=== PATIENT | female | born 1950 | race African-American/Black ===

== ENCOUNTER 2017-12-09 10:37 | Inpatient (IN) ==
[2017-12-09] MEDS ORDERED: LEVOFLOXACIN INJ 750 MG in PREMIX 1 EACH IV STA (11:07)
[2017-12-09] MEDS ORDERED: SODIUM CHLORIDE 0.9% 500 ML IV STA (11:07)
[2017-12-09 12:05] LABS: Alanine Aminotransferase 19 U/L (13-56); Albumin 2.6 G/DL (3.4-5.0); Alkaline Phosphatase 70 U/L (45-117); Aspartate Amino Transferase 52 U/L (0-37); Bilirubin,Total < 0.39 MG/DL (0.2-1.0); Blood Urea Nitrogen 13 MG/DL (7-18); Calcium 8.8 MG/DL (8.5-10.1); Glucose 78 MG/DL (74-106); Lactic Acid 1.2 MMOL/L (0.4-2.0); Osmolality,Calculated 286.7 MOS/KG (273-304); Potassium 3.9 MMOL/L (3.5-5.1); Sodium 145 MMOL/L (136-145); Total Protein 6.6 G/DL (6.4-8.3)
[2017-12-09 12:11] LABS: Apearance,Urine CLOUDY (Clear); Bacteria,Urine Many /HPF (Few); Bilirubin,Urine Negative (Negative); Blood, Urine Small mg/dL (Negative); Glucose,Urine (UA) Negative (Negative); Ketones,Urine Negative (Negative); Mucus,Urine Many /LPF (Occasional); Nitrite,Urine Negative (Negative); Protein,Urine 30 MG/DL; RBC,Urine 16 /HPF (0-4); Urine Color Amber (Yellow); Urine Specific Gravity 1.015 (1.001-1.035); WBC,Urine 295 /HPF (0-6)
[2017-12-09 12:11] LABS: Basophils % 0.3 % (0.0-0.8); Hematocrit 34.7 VOL% (35.7-47.0); Immature Granulocytes % 0.7 %; Immature Granulocytes Absolute 0.11 #; Lymphocytes # 1.6 10*3/uL (1.4-4.0); Lymphocytes % 10.1 % (21.3-54.2); Mean Corpuscular HGB Conc 31.7 GM/DL (32-36); Mean Corpuscular Hemoglobin 29 PG (27-34); Mean Corpuscular Volume 89.9 FL (87-102); Mean Platelet Volume 9.7 FL (9.6-12.0); Monocytes # 1.4 10*3/uL (0.11-0.8); Monocytes % 8.9 % (1.7-12.7); Neutrophils # 12.4 10*3/uL (1.4-7.4); Platelet Count 195 T/CUMM (130-400); Red Blood Count 3.86 MC/CUMM (3.8-5.5); Red Cell Distribution Width 14.6 % (9.3-17.3); White Blood Count 15.5 T/CUMM (4-12)
[2017-12-09 12:39] LABS: Band Neutrophils 24 % (0-10); Lymphocytes 12 % (20-55); Segmented Neutrophils 58 % (50-85); Total Cells Counted 100
[2017-12-09 12:40] LABS: Anisocytosis 1+; Macrocytosis Slight; Platelet Estimate Adequate
[2017-12-09] MEDS ORDERED: DOCUSATE SODIUM 100 MG CAPSULE PO PRN (13:06)
[2017-12-09] MEDS ORDERED: ONDANSETRON 4 MG/2 ML VIAL IV PRN (13:06)
[2017-12-09] MEDS ORDERED: ACETAMINOPHEN 325 MG TABLET PO PRN (13:24)
[2017-12-09] MEDS ORDERED: ONDANSETRON 4 MG TABLET PO PRN (13:24)
[2017-12-09] MEDS ORDERED: SODIUM CHLORIDE 0.9% 1,000 ML IV SCH (13:30)
[2017-12-09] MEDS ORDERED: ZIPRASIDONE 20 MG/1 ML VIAL IM ONE (16:58)
[2017-12-09] MEDS: SODIUM CHLORIDE 0.9% 1,000 ML IV SCH (17:18)
[2017-12-09] MEDS: ALBUTEROL 2.5 MG/3 ML NEB RESP TX SCH (19:29)
[2017-12-09] MEDS: MELATONIN 3 MG TABLET PO SCH (20:08)
[2017-12-09] MEDS: HALOPERIDOL 1 MG TABLET PO SCH (22:04)
[2017-12-09] MEDS: MEMANTINE 5 MG TABLET PO SCH (22:04)
[2017-12-09] MEDS: BENZTROPINE 2 MG TABLET PO SCH (22:05)
[2017-12-09] MEDS: HydrOXYzine PAMOATE 25 MG CAPSULE PO SCH (22:05)
[2017-12-09] MEDS: traZODone 50 MG TABLET PO SCH (22:05)
[2017-12-10] MEDS: ALBUTEROL 2.5 MG/3 ML NEB RESP TX SCH ×4 (00:13→20:10)
[2017-12-10] MEDS: ZIPRASIDONE 20 MG/1 ML VIAL IM PRN ×4 (01:41→22:48)
[2017-12-10] MEDS: LEVOTHYROXINE 50 MCG TABLET PO SCH (06:03)
[2017-12-10 08:12] LABS: Basophils % 0.1 % (0.0-0.8); Hematocrit 32.9 VOL% (35.7-47.0); Hemoglobin 10.7 GM/DL (12.0-16.0); Immature Granulocytes % 0.3 %; Immature Granulocytes Absolute 0.02 #; Lymphocytes # 0.9 10*3/uL (1.4-4.0); Mean Corpuscular HGB Conc 32.5 GM/DL (32-36); Mean Corpuscular Hemoglobin 29 PG (27-34); Mean Corpuscular Volume 88.9 FL (87-102); Mean Platelet Volume 10.1 FL (9.6-12.0); Monocytes # 0.6 10*3/uL (0.11-0.8); Monocytes % 8.4 % (1.7-12.7); Neutrophils # 6.1 10*3/uL (1.4-7.4); Neutrophils % 79.2 % (38.7-73.9); Platelet Count 229 T/CUMM (130-400); Red Cell Distribution Width 14.8 % (9.3-17.3); White Blood Count 7.7 T/CUMM (4-12)
[2017-12-10 08:38] LABS: Calcium 8.7 MG/DL (8.5-10.1); Osmolality,Calculated 282.8 MOS/KG (273-304)
[2017-12-10] MEDS: BENZTROPINE 2 MG TABLET PO SCH ×3 (08:56→20:48)
[2017-12-10] MEDS: HALOPERIDOL 1 MG TABLET PO SCH ×3 (08:56→20:48)
[2017-12-10] MEDS: HydrOXYzine PAMOATE 25 MG CAPSULE PO SCH ×3 (08:57→20:49)
[2017-12-10] MEDS: MEMANTINE 5 MG TABLET PO SCH ×3 (08:57→20:49)
[2017-12-10] MEDS: PANTOPRAZOLE 40 MG TABLET PO SCH (08:57)
[2017-12-10] MEDS: POTASSIUM CHLORIDE 20 MEQ/15 ML UDCUP PO SCH (08:57)
[2017-12-10] MEDS ORDERED: FUROSEMIDE 20 MG TABLET PO SCH (09:00)
[2017-12-10] MEDS ORDERED: LEVOFLOXACIN INJ 500 MG in PREMIX 1 EACH IV SCH (11:00)
[2017-12-10] MEDS: LEVOFLOXACIN INJ 500 MG in PREMIX 1 EACH IV SCH (11:54)
[2017-12-10] MEDS: SODIUM CHLORIDE 0.9% 1,000 ML IV SCH ×2 (15:26→22:51)
[2017-12-10] MEDS: MELATONIN 3 MG TABLET PO SCH (17:23)
[2017-12-10] MEDS: traZODone 50 MG TABLET PO SCH (20:47)
[2017-12-11] MEDS: ALBUTEROL 2.5 MG/3 ML NEB RESP TX SCH ×4 (01:02→19:20)
[2017-12-11] MEDS: ZIPRASIDONE 20 MG/1 ML VIAL IM PRN ×2 (05:01→16:25)
[2017-12-11 05:37] LABS: Basophils % 0.1 % (0.0-0.8); Hematocrit 31.3 VOL% (35.7-47.0); Immature Granulocytes % 0.4 %; Immature Granulocytes Absolute 0.03 #; Lymphocytes # 0.8 10*3/uL (1.4-4.0); Lymphocytes % 10.4 % (21.3-54.2); Mean Corpuscular HGB Conc 31.9 GM/DL (32-36); Mean Corpuscular Hemoglobin 29 PG (27-34); Mean Corpuscular Volume 89.4 FL (87-102); Mean Platelet Volume 10.2 FL (9.6-12.0); Monocytes % 13.6 % (1.7-12.7); Neutrophils # 5.6 10*3/uL (1.4-7.4); Neutrophils % 75.5 % (38.7-73.9); Platelet Count 215 T/CUMM (130-400); Red Cell Distribution Width 14.6 % (9.3-17.3); White Blood Count 7.4 T/CUMM (4-12)
[2017-12-11 06:07] LABS: Calcium 8.4 MG/DL (8.5-10.1); Osmolality,Calculated 283.7 MOS/KG (273-304); Potassium 3.6 MMOL/L (3.5-5.1)
[2017-12-11] MEDS: LEVOTHYROXINE 50 MCG TABLET PO SCH (07:42)
[2017-12-11] MEDS: HydrOXYzine PAMOATE 25 MG CAPSULE PO SCH ×2 (10:31→22:46)
[2017-12-11] MEDS: MEMANTINE 5 MG TABLET PO SCH ×2 (10:32→22:46)
[2017-12-11] MEDS: HALOPERIDOL 1 MG TABLET PO SCH ×2 (10:32→22:46)
[2017-12-11] MEDS: PANTOPRAZOLE 40 MG TABLET PO SCH (10:32)
[2017-12-11] MEDS: BENZTROPINE 2 MG TABLET PO SCH ×2 (10:32→22:46)
[2017-12-11] MEDS: POTASSIUM CHLORIDE 20 MEQ/15 ML UDCUP PO SCH (10:33)
[2017-12-11] MEDS: LEVOFLOXACIN INJ 500 MG in PREMIX 1 EACH IV SCH (11:34)
[2017-12-11] MEDS: cefTAZidime 500 MG in SYRINGE 1 EACH IV SCH ×2 (16:11→22:55)
[2017-12-11] MEDS: SODIUM CHLORIDE 0.9% 1,000 ML IV SCH (16:37)
[2017-12-11] MEDS: MELATONIN 3 MG TABLET PO SCH (17:54)
[2017-12-11] MEDS: traZODone 50 MG TABLET PO SCH (22:46)
[2017-12-12] MEDS: ALBUTEROL 2.5 MG/3 ML NEB RESP TX SCH ×4 (00:10→19:31)
[2017-12-12] MEDS: ZIPRASIDONE 20 MG/1 ML VIAL IM PRN (02:47)
[2017-12-12] MEDS: cefTAZidime 500 MG in SYRINGE 1 EACH IV SCH ×3 (06:17→22:31)
[2017-12-12] MEDS: LEVOTHYROXINE 50 MCG TABLET PO SCH (06:18)
[2017-12-12] MEDS: SODIUM CHLORIDE 0.9% 1,000 ML IV SCH ×2 (10:10→15:35)
[2017-12-12] MEDS: BENZTROPINE 2 MG TABLET PO SCH ×3 (10:11→21:01)
[2017-12-12] MEDS: PANTOPRAZOLE 40 MG TABLET PO SCH ×2 (10:11→17:08)
[2017-12-12] MEDS: POTASSIUM CHLORIDE 20 MEQ/15 ML UDCUP PO SCH ×2 (10:11→17:07)
[2017-12-12] MEDS: HydrOXYzine PAMOATE 25 MG CAPSULE PO SCH ×3 (10:11→21:01)
[2017-12-12] MEDS: MEMANTINE 5 MG TABLET PO SCH ×3 (10:11→21:01)
[2017-12-12] MEDS: HALOPERIDOL 1 MG TABLET PO SCH ×3 (10:11→21:01)
[2017-12-12 12:14] LABS: Apearance,Urine CLEAR (Clear); Blood, Urine Negative (Negative); Glucose,Urine (UA) Negative (Negative); Ketones,Urine 20 mg/dL (Negative); Mucus,Urine Many /LPF (Occasional); Nitrite,Urine Negative (Negative); Protein,Urine 30 MG/DL; RBC,Urine 2 /HPF (0-4); Urine Color Amber (Yellow); Urine Specific Gravity 1.028 (1.001-1.035); WBC,Urine 2 /HPF (0-6)
[2017-12-12 12:15] LABS: Bilirubin,Urine Small mg/dL (Negative)
[2017-12-12] MEDS: MELATONIN 3 MG TABLET PO SCH (17:08)
[2017-12-12] MEDS: traZODone 50 MG TABLET PO SCH (21:01)
[2017-12-13] MEDS: ALBUTEROL 2.5 MG/3 ML NEB RESP TX SCH ×4 (00:39→19:27)
[2017-12-13 06:10] LABS: Basophils % 0.4 % (0.0-0.8); Eosinophils % 0.2 % (0.00-10.9); Hematocrit 31.4 VOL% (35.7-47.0); Hemoglobin 10.1 GM/DL (12.0-16.0); Immature Granulocytes % 0.7 %; Immature Granulocytes Absolute 0.04 #; Lymphocytes # 1.6 10*3/uL (1.4-4.0); Lymphocytes % 30.5 % (21.3-54.2); Mean Corpuscular HGB Conc 32.2 GM/DL (32-36); Mean Corpuscular Hemoglobin 28 PG (27-34); Mean Corpuscular Volume 87.5 FL (87-102); Mean Platelet Volume 9.5 FL (9.6-12.0); Monocytes # 0.6 10*3/uL (0.11-0.8); Neutrophils % 56.2 % (38.7-73.9); Platelet Count 242 T/CUMM (130-400); Red Blood Count 3.59 MC/CUMM (3.8-5.5); Red Cell Distribution Width 14.6 % (9.3-17.3); White Blood Count 5.4 T/CUMM (4-12)
[2017-12-13 06:24] LABS: Calcium 8.3 MG/DL (8.5-10.1); Osmolality,Calculated 282.8 MOS/KG (273-304); Potassium 3.3 MMOL/L (3.5-5.1)
[2017-12-13] MEDS: SODIUM CHLORIDE 0.9% 1,000 ML IV SCH (06:35)
[2017-12-13] MEDS: cefTAZidime 500 MG in SYRINGE 1 EACH IV SCH ×3 (06:37→23:54)
[2017-12-13] MEDS: LEVOTHYROXINE 50 MCG TABLET PO SCH (06:37)
[2017-12-13] MEDS: BENZTROPINE 2 MG TABLET PO SCH ×2 (08:47→21:44)
[2017-12-13] MEDS: HALOPERIDOL 1 MG TABLET PO SCH ×2 (08:47→21:44)
[2017-12-13] MEDS: PANTOPRAZOLE 40 MG TABLET PO SCH (08:47)
[2017-12-13] MEDS: MEMANTINE 5 MG TABLET PO SCH ×2 (08:47→21:43)
[2017-12-13] MEDS: POTASSIUM CHLORIDE 20 MEQ/15 ML UDCUP PO SCH (08:47)
[2017-12-13] MEDS: HydrOXYzine PAMOATE 25 MG CAPSULE PO SCH ×2 (08:47→21:43)
[2017-12-13] MEDS: MELATONIN 3 MG TABLET PO SCH (21:44)
[2017-12-13] MEDS: traZODone 50 MG TABLET PO SCH (21:45)
[2017-12-14] MEDS: ALBUTEROL 2.5 MG/3 ML NEB RESP TX SCH ×4 (00:13→19:06)
[2017-12-14] MEDS: LEVOTHYROXINE 50 MCG TABLET PO SCH (06:27)
[2017-12-14] MEDS: cefTAZidime 500 MG in SYRINGE 1 EACH IV SCH ×3 (06:28→23:57)
[2017-12-14] MEDS: BENZTROPINE 2 MG TABLET PO SCH ×2 (08:02→21:36)
[2017-12-14] MEDS: POTASSIUM CHLORIDE 20 MEQ/15 ML UDCUP PO SCH (08:02)
[2017-12-14] MEDS: HALOPERIDOL 1 MG TABLET PO SCH ×2 (08:02→21:35)
[2017-12-14] MEDS: MEMANTINE 5 MG TABLET PO SCH ×2 (08:02→21:35)
[2017-12-14] MEDS: PANTOPRAZOLE 40 MG TABLET PO SCH (08:02)
[2017-12-14] MEDS: HydrOXYzine PAMOATE 25 MG CAPSULE PO SCH ×2 (08:02→21:35)
[2017-12-14 11:43] LABS: Apearance,Urine CLEAR (Clear); Bilirubin,Urine Negative (Negative); Blood, Urine Negative (Negative); Glucose,Urine (UA) Negative (Negative); Ketones,Urine Negative (Negative); Mucus,Urine Occasional /LPF (Occasional); Nitrite,Urine Negative (Negative); Protein,Urine Negative; Urine Color Straw (Yellow); Urine Specific Gravity 1.002 (1.001-1.035); Urine Urobilinogen < 2.0 EU/DL (0.2-1.0); WBC,Urine 1 /HPF (0-6)
[2017-12-14] MEDS: SODIUM CHLORIDE 0.9% 1,000 ML IV SCH ×2 (15:23→15:26)
[2017-12-14] MEDS: MELATONIN 3 MG TABLET PO SCH (17:10)
[2017-12-14] MEDS: traZODone 50 MG TABLET PO SCH (21:35)
[2017-12-15] MEDS: ALBUTEROL 2.5 MG/3 ML NEB RESP TX SCH ×2 (00:33→07:21)
[2017-12-15] MEDS: SODIUM CHLORIDE 0.9% 1,000 ML IV SCH (04:18)
[2017-12-15] MEDS: LEVOTHYROXINE 50 MCG TABLET PO SCH (06:10)
[2017-12-15] MEDS: cefTAZidime 500 MG in SYRINGE 1 EACH IV SCH (06:10)
[2017-12-15] MEDS: MEMANTINE 5 MG TABLET PO SCH (09:21)
[2017-12-15] MEDS: POTASSIUM CHLORIDE 20 MEQ/15 ML UDCUP PO SCH (09:21)
[2017-12-15] MEDS: PANTOPRAZOLE 40 MG TABLET PO SCH (09:21)
[2017-12-15] MEDS: HALOPERIDOL 1 MG TABLET PO SCH (09:21)
[2017-12-15] MEDS: POTASSIUM CHLORIDE RIDER 10 MEQ in PREMIX 1 EACH IV SCH ×3 (09:21→13:20)
[2017-12-15] MEDS: BENZTROPINE 2 MG TABLET PO SCH (09:22)
[2017-12-15] MEDS: HydrOXYzine PAMOATE 25 MG CAPSULE PO SCH (09:22)
[2017-12-15 13:23] VITALS: BP 123/75
== END 2017-12-15 13:40 | DRG 139 ==
LOC: EDUNIT# → EDBD → N.ED 10:37 → N.EDINP 13:06 → SUATTDRO 13:06 → N.5E 16:08
PROVIDERS: ADMIT Family Medicine

== ENCOUNTER 2018-02-26 15:24 | Observation (INO) ==
[2018-02-26 16:54] LABS: Basophils % 0.3 % (0.0-0.8); Eosinophils % 0.3 % (0.00-10.9); Hematocrit 35.6 VOL% (35.7-47.0); Hemoglobin 10.9 GM/DL (12.0-16.0); Immature Granulocytes % 0.3 %; Immature Granulocytes Absolute 0.02 #; Lymphocytes # 1.6 10*3/uL (1.4-4.0); Lymphocytes % 21.6 % (21.3-54.2); Mean Corpuscular HGB Conc 30.6 GM/DL (32-36); Mean Corpuscular Hemoglobin 25 PG (27-34); Mean Corpuscular Volume 80.2 FL (87-102); Mean Platelet Volume 8.8 FL (9.6-12.0); Monocytes # 0.5 10*3/uL (0.11-0.8); Monocytes % 6.1 % (1.7-12.7); Neutrophils # 5.4 10*3/uL (1.4-7.4); Neutrophils % 71.4 % (38.7-73.9); Platelet Count 389 T/CUMM (130-400); Red Blood Count 4.44 MC/CUMM (3.8-5.5); Red Cell Distribution Width 14.7 % (9.3-17.3); White Blood Count 7.5 T/CUMM (4-12)
[2018-02-26] MEDS ORDERED: SODIUM CHLORIDE 0.9% 500 ML IV STA (16:54)
[2018-02-26] MEDS ORDERED: ONDANSETRON 4 MG/2 ML VIAL IV STA (16:54)
[2018-02-26] MEDS ORDERED: methylPREDNISolone SOD SUC 125 MG/2 ML VIAL IV STA (16:54)
[2018-02-26] MEDS ORDERED: CLINDAMYCIN INJ 600 MG in PREMIX 1 EACH IV STA (16:54)
[2018-02-26] MEDS ORDERED: ALBUTEROL NEB SOLN 5 MG/ML 20 ML/BOTTLE RESP TX SCH (17:00)
[2018-02-26 17:19] LABS: Alanine Aminotransferase 32 U/L (13-56); Alkaline Phosphatase 96 U/L (45-117); Aspartate Amino Transferase 23 U/L (0-37); Bilirubin,Total < 0.39 MG/DL (0.2-1.0); Blood Urea Nitrogen 14 MG/DL (7-18); Glucose 86 MG/DL (74-106); Osmolality,Calculated 272.8 MOS/KG (273-304); Sodium 137 MMOL/L (136-145); Total Protein 7.4 G/DL (6.4-8.3)
[2018-02-26 17:33] LABS: PT Patient Result 10.8 SECS
[2018-02-26 18:01] LABS: Apearance,Urine CLEAR (Clear); Bacteria,Urine Occasional /HPF (Few); Bilirubin,Urine Negative (Negative); Blood, Urine Small mg/dL (Negative); Glucose,Urine (UA) Negative (Negative); Hyaline Casts,Urine 1 /LPF (0-3); Ketones,Urine Negative (Negative); Mucus,Urine Occasional /LPF (Occasional); Nitrite,Urine Negative (Negative); Protein,Urine Negative; RBC,Urine 5 /HPF (0-4); Urine Color Yellow (Yellow); Urine Specific Gravity 1.015 (1.001-1.035); Urine Urobilinogen < 2.0 EU/DL (0.2-1.0); WBC,Urine 13 /HPF (0-6)
[2018-02-26] MEDS ORDERED: cefTRIAXone 1,000 MG in SODIUM CHLORIDE 0.9% 100 ML IV STA (18:05)
[2018-02-26] MEDS ORDERED: cefTRIAXone 1,000 MG in SYRINGE 1 EACH IV STA (18:08)
[2018-02-26] MEDS ORDERED: ACETAMINOPHEN 325 MG TABLET PO PRN (19:00)
[2018-02-26] MEDS ORDERED: ONDANSETRON 4 MG/2 ML VIAL IV PRN (19:00)
[2018-02-26] MEDS ORDERED: SODIUM CHLORIDE 0.9% 1,000 ML IV SCH (19:00)
[2018-02-26] MEDS ORDERED: traZODone 50 MG TABLET PO SCH (21:01)
[2018-02-26] MEDS ORDERED: MELATONIN 3 MG TABLET PO SCH (21:01)
[2018-02-26] MEDS ORDERED: VALPROIC ACID 250 MG/5 ML UDCUP PO SCH (21:01)
[2018-02-26] MEDS: PIPERACILLIN/TAZOBACTAM 3,375 MG in SODIUM CHLORIDE 0.9% 100 ML IV SCH (22:00)
[2018-02-26] MEDS: HydrOXYzine PAMOATE 25 MG CAPSULE PO SCH (22:31)
[2018-02-26] MEDS: BENZTROPINE 1 MG TABLET PO SCH (22:31)
[2018-02-26] MEDS: MEMANTINE 5 MG TABLET PO SCH (22:31)
[2018-02-26] MEDS: HALOPERIDOL 1 MG TABLET PO SCH (22:32)
[2018-02-27] MEDS ORDERED: LEVOTHYROXINE 50 MCG TABLET PO SCH (06:00)
[2018-02-27 06:43] LABS: Hematocrit 32.7 VOL% (35.7-47.0); Immature Granulocytes % 0.5 %; Immature Granulocytes Absolute 0.03 #; Lymphocytes % 16.1 % (21.3-54.2); Mean Corpuscular HGB Conc 30.6 GM/DL (32-36); Mean Corpuscular Hemoglobin 24 PG (27-34); Mean Corpuscular Volume 79.8 FL (87-102); Monocytes # 0.1 10*3/uL (0.11-0.8); Monocytes % 2.1 % (1.7-12.7); Neutrophils # 5.2 10*3/uL (1.4-7.4); Neutrophils % 81.3 % (38.7-73.9); Platelet Count 365 T/CUMM (130-400); Red Cell Distribution Width 14.7 % (9.3-17.3); White Blood Count 6.3 T/CUMM (4-12)
[2018-02-27 07:21] LABS: Calcium 8.8 MG/DL (8.5-10.1); Osmolality,Calculated 277.4 MOS/KG (273-304); Potassium 4.8 MMOL/L (3.5-5.1); Thyroid Stimulating Hormone 0.668 uIU/ml (0.358-3.74)
[2018-02-27 07:37] VITALS: BP 96/70
[2018-02-27] MEDS ORDERED: FUROSEMIDE 20 MG TABLET PO SCH (08:00)
[2018-02-27] MEDS ORDERED: VALPROIC ACID 250 MG/5 ML UDCUP PO SCH (08:00)
[2018-02-27] MEDS ORDERED: POTASSIUM CHLORIDE 20 MEQ/15 ML UDCUP PO SCH (08:00)
[2018-02-27] MEDS: PIPERACILLIN/TAZOBACTAM 3,375 MG in SODIUM CHLORIDE 0.9% 100 ML IV SCH (08:30)
[2018-02-27] MEDS ORDERED: PANTOPRAZOLE 40 MG TABLET PO SCH (09:00)
[2018-02-27] MEDS: BENZTROPINE 1 MG TABLET PO SCH (09:12)
[2018-02-27] MEDS: MEMANTINE 5 MG TABLET PO SCH (09:12)
[2018-02-27] MEDS: HydrOXYzine PAMOATE 25 MG CAPSULE PO SCH (09:13)
[2018-02-27] MEDS: HALOPERIDOL 1 MG TABLET PO SCH (09:13)
== END 2018-02-27 11:00 ==
LOC: EDBD → EDUNIT# → N.ED 15:24 → N.EDINP 15:24 → N.2E 18:56
PROVIDERS: ADMIT Internal Medicine; ATTEND Internal Medicine

== ENCOUNTER 2018-03-12 20:41 | Inpatient (IN) ==
[2018-03-12] MEDS ORDERED: SODIUM CHLORIDE 0.9% 1,000 ML IV STA (21:47)
[2018-03-12] MEDS ORDERED: CEFEPIME 1,000 MG in SODIUM CHLORIDE 0.9% 100 ML IV STA (21:47)
[2018-03-12] MEDS ORDERED: ROCURONIUM 100 MG/10 ML VIAL IV STA (23:01)
[2018-03-12] MEDS ORDERED: ETOMIDATE 20 MG/10 ML VIAL IV STA (23:02)
[2018-03-12 23:03] LABS: Basophils % 0.2 % (0.0-0.8); Hematocrit 35.3 VOL% (35.7-47.0); Hemoglobin 10.6 GM/DL (12.0-16.0); Immature Granulocytes % 0.2 %; Immature Granulocytes Absolute 0.02 #; Lymphocytes # 0.3 10*3/uL (1.4-4.0); Lymphocytes % 2.2 % (21.3-54.2); Mean Corpuscular Hemoglobin 24 PG (27-34); Mean Platelet Volume 8.6 FL (9.6-12.0); Monocytes # 0.4 10*3/uL (0.11-0.8); Neutrophils # 11.3 10*3/uL (1.4-7.4); Neutrophils % 94.4 % (38.7-73.9); Platelet Count 338 T/CUMM (130-400); Red Blood Count 4.41 MC/CUMM (3.8-5.5); Red Cell Distribution Width 16.1 % (9.3-17.3); White Blood Count 11.9 T/CUMM (4-12)
[2018-03-12 23:23] LABS: Band Neutrophils 14 % (0-10); Lymphocytes 2 % (20-55); Segmented Neutrophils 82 % (50-85); Total Cells Counted 100
[2018-03-12 23:24] LABS: Anisocytosis 1+; Ovalocytes Few; Platelet Estimate Adequate
[2018-03-12 23:28] LABS: Lactic Acid 1.6 MMOL/L (0.4-2.0)
[2018-03-12 23:30] LABS: VBG Base Excess 6.1 MEQ/L (0-4); VBG HCO3 29.6 MEQ/L (24-28); VBG Oxygen Saturation 79.6 %; VBG PCO2 62.1 MMHG (41-51); VBG PH 7.343; VBG PO2 50.3 MMHG (17-40)
[2018-03-12 23:30] LABS: Albumin 3.2 G/DL (3.4-5.0); Bilirubin,Total 0.4 MG/DL (0.2-1.0); Calcium 8.8 MG/DL (8.5-10.1); Osmolality,Calculated 288.7 MOS/KG (273-304); Potassium 3.9 MMOL/L (3.5-5.1); Total Protein 7.6 G/DL (6.4-8.3)
[2018-03-12] MEDS: PROPOFOL 1,000 MG/100 ML BOTTLE IV SCH (23:30)
[2018-03-13] MEDS ORDERED: VECURONIUM 10 MG VIAL IV ONE ×3 (00:51→06:27)
[2018-03-13] MEDS ORDERED: VECURONIUM 10 MG VIAL IV STA ×3 (00:55→06:35)
[2018-03-13 02:03] LABS: Apearance,Urine CLEAR (Clear); Bacteria,Urine Occasional /HPF (Few); Bilirubin,Urine Negative (Negative); Blood, Urine Negative (Negative); Glucose,Urine (UA) Negative (Negative); Ketones,Urine 20 mg/dL (Negative); Mucus,Urine Occasional /LPF (Occasional); Nitrite,Urine Negative (Negative); Protein,Urine Negative; RBC,Urine 1 /HPF (0-4); Urine Color Yellow (Yellow); Urine Specific Gravity 1.018 (1.001-1.035); WBC,Urine 1 /HPF (0-6)
[2018-03-13] MEDS ORDERED: ALBUTEROL 2.5 MG/3 ML NEB RESP TX PRN (02:26)
[2018-03-13] MEDS ORDERED: ONDANSETRON 4 MG/2 ML VIAL IV PRN (02:26)
[2018-03-13] MEDS ORDERED: ACETAMINOPHEN 325 MG TABLET PO PRN (02:26)
[2018-03-13] MEDS: SODIUM CHLORIDE 0.9% 1,000 ML IV SCH ×3 (03:05→18:52)
[2018-03-13 04:40] LABS: Basophils % 0.2 % (0.0-0.8); Hematocrit 31.2 VOL% (35.7-47.0); Hemoglobin 9.3 GM/DL (12.0-16.0); Immature Granulocytes % 0.3 %; Immature Granulocytes Absolute 0.03 #; Lymphocytes # 0.6 10*3/uL (1.4-4.0); Lymphocytes % 5.6 % (21.3-54.2); Mean Corpuscular HGB Conc 29.8 GM/DL (32-36); Mean Corpuscular Hemoglobin 24 PG (27-34); Mean Corpuscular Volume 80.6 FL (87-102); Mean Platelet Volume 8.7 FL (9.6-12.0); Monocytes # 0.3 10*3/uL (0.11-0.8); Monocytes % 3.2 % (1.7-12.7); Neutrophils # 9.1 10*3/uL (1.4-7.4); Neutrophils % 90.7 % (38.7-73.9); Platelet Count 272 T/CUMM (130-400); Red Blood Count 3.87 MC/CUMM (3.8-5.5); Red Cell Distribution Width 15.9 % (9.3-17.3); White Blood Count 10.1 T/CUMM (4-12)
[2018-03-13 05:00] LABS: Band Neutrophils 19 % (0-10); Hypochromasia 1+; Lymphocytes 10 % (20-55); Ovalocytes Slight; Platelet Estimate Adequate; Segmented Neutrophils 67 % (50-85); Total Cells Counted 100
[2018-03-13] MEDS: AMPICILLIN/SULBACTAM 1,500 MG in SODIUM CHLORIDE 0.9% 100 ML IV SCH ×4 (05:00→22:02)
[2018-03-13 05:11] LABS: % Iron Saturation 3.3 % (18-50); Calcium 8.2 MG/DL (8.5-10.1); Ferritin 19.3 ng/ml (8-252); Osmolality,Calculated 292.4 MOS/KG (273-304); Potassium 3.8 MMOL/L (3.5-5.1); Thyroid Stimulating Hormone 1.53 uIU/ml (0.358-3.74)
[2018-03-13 05:35] LABS: Vitamin B12 721 PG/ML (211-911)
[2018-03-13 05:52] LABS: Sedimentation Rate-Westergren 30 MM/HR (0-30)
[2018-03-13] MEDS ORDERED: ETOMIDATE 20 MG/10 ML VIAL IV ONE (06:38)
[2018-03-13] MEDS ORDERED: ROCURONIUM 100 MG/10 ML VIAL IV ONE (06:39)
[2018-03-13] MEDS: ALBUTEROL/IPRATROPIUM 3 ML NEB RESP TX SCH ×3 (06:55→19:05)
[2018-03-13 07:17] LABS: ABG Base Excess 4.1 MMOL/L (-2.5-2.5); ABG HCO3 28.2 MMOL/L (20-26); ABG Oxygen Saturation 99.7 % (95-100); ABG PCO2 61.1 MM HG (35-48); ABG PH 7.321 (7.35-7.45); ABG TCO2 29.2 MMOL/L (23-27)
[2018-03-13] MEDS: VECURONIUM 100 MG in SODIUM CHLORIDE 0.9% 100 ML IV SCH (09:29)
[2018-03-13] MEDS: LEVOTHYROXINE 50 MCG TABLET PO SCH (11:25)
[2018-03-13] MEDS: BENZTROPINE 2 MG TABLET PO SCH ×2 (11:25→20:37)
[2018-03-13] MEDS: MEMANTINE 5 MG TABLET PO SCH ×2 (11:25→20:37)
[2018-03-13] MEDS: ENOXAPARIN 40 MG/0.4 ML SYRINGE SUBCUT SCH (11:25)
[2018-03-13] MEDS: VALPROIC ACID 250 MG/5 ML UDCUP PO SCH ×2 (11:25→20:37)
[2018-03-13] MEDS: PANTOPRAZOLE 40 MG VIAL IV SCH (11:26)
[2018-03-13 12:14] LABS: ABG Base Excess 4.6 MMOL/L (-2.5-2.5); ABG HCO3 30.8 MMOL/L (20-26); ABG Oxygen Saturation 99.4 % (95-100); ABG PCO2 54.9 MM HG (35-48); ABG PH 7.367 (7.35-7.45); ABG PO2 291.3 MM HG (80-95); ABG TCO2 32.5 MMOL/L (23-27)
[2018-03-13 13:41] LABS: ABG Base Excess 4.4 MMOL/L (-2.5-2.5); ABG HCO3 28.4 MMOL/L (20-26); ABG Oxygen Saturation 99.4 % (95-100); ABG PCO2 42.4 MM HG (35-48); ABG PH 7.441 (7.35-7.45); ABG TCO2 26.5 MMOL/L (23-27)
[2018-03-13] MEDS: PROPOFOL 1,000 MG/100 ML BOTTLE IV SCH ×2 (18:15→23:38)
[2018-03-14] MEDS: ALBUTEROL/IPRATROPIUM 3 ML NEB RESP TX SCH ×4 (00:40→19:49)
[2018-03-14] MEDS: SODIUM CHLORIDE 0.9% 1,000 ML IV SCH ×3 (02:52→20:39)
[2018-03-14] MEDS: AMPICILLIN/SULBACTAM 1,500 MG in SODIUM CHLORIDE 0.9% 100 ML IV SCH ×4 (04:03→22:48)
[2018-03-14] MEDS: PROPOFOL 1,000 MG/100 ML BOTTLE IV SCH ×4 (04:10→22:57)
[2018-03-14 04:24] LABS: ABG Base Excess 2.7 MMOL/L (-2.5-2.5); ABG HCO3 26.9 MMOL/L (20-26); ABG Oxygen Saturation 98.5 % (95-100); ABG PCO2 44.1 MM HG (35-48); ABG PH 7.407 (7.35-7.45); ABG TCO2 25.7 MMOL/L (23-27); Allen Test Positive; Pt O2 Delivery Device Ventilator
[2018-03-14] MEDS: LEVOTHYROXINE 50 MCG TABLET PO SCH (05:07)
[2018-03-14 05:46] LABS: Basophils % 0.3 % (0.0-0.8); Eosinophils % 0.3 % (0.00-10.9); Hemoglobin 8.8 GM/DL (12.0-16.0); Immature Granulocytes % 3.4 %; Lymphocytes # 0.6 10*3/uL (1.4-4.0); Lymphocytes % 5.2 % (21.3-54.2); Mean Corpuscular HGB Conc 30.3 GM/DL (32-36); Mean Corpuscular Hemoglobin 24 PG (27-34); Mean Corpuscular Volume 78.4 FL (87-102); Mean Platelet Volume 9.6 FL (9.6-12.0); Monocytes # 0.4 10*3/uL (0.11-0.8); Monocytes % 3.4 % (1.7-12.7); Neutrophils # 10.3 10*3/uL (1.4-7.4); Neutrophils % 87.4 % (38.7-73.9); Platelet Count 285 T/CUMM (130-400); White Blood Count 11.8 T/CUMM (4-12)
[2018-03-14 06:03] LABS: Calcium 8.2 MG/DL (8.5-10.1); Osmolality,Calculated 287.6 MOS/KG (273-304); Potassium 3.1 MMOL/L (3.5-5.1)
[2018-03-14 06:10] LABS: INR 1.2; Partial Thromboplastin Time 34.9 SECS (0-40)
[2018-03-14 06:17] LABS: Anisocytosis Slight; Band Neutrophils 47 % (0-10); Eosinophils 1 % (0-10); Lymphocytes 7 % (20-55); Macrocytosis Slight; Platelet Estimate Normal; Segmented Neutrophils 40 % (50-85); Total Cells Counted 100
[2018-03-14 06:18] LABS: Poikilocytosis Slight
[2018-03-14] MEDS: POTASSIUM CHLORIDE RIDER 10 MEQ in PREMIX 1 EACH IV PRN ×6 (06:25→21:41)
[2018-03-14] MEDS: VECURONIUM 100 MG in SODIUM CHLORIDE 0.9% 100 ML IV SCH (07:34)
[2018-03-14] MEDS: PANTOPRAZOLE 40 MG VIAL IV SCH (08:44)
[2018-03-14] MEDS: VALPROIC ACID 250 MG/5 ML UDCUP PO SCH ×2 (08:44→20:37)
[2018-03-14] MEDS: BENZTROPINE 2 MG TABLET PO SCH ×2 (08:44→20:37)
[2018-03-14] MEDS: MEMANTINE 5 MG TABLET PO SCH ×2 (08:44→20:37)
[2018-03-14] MEDS: ENOXAPARIN 40 MG/0.4 ML SYRINGE SUBCUT SCH (08:44)
[2018-03-14] MEDS ORDERED: POTASSIUM CHLORIDE 20 MEQ/15 ML UDCUP PER TUBE SCH (13:00)
[2018-03-14] MEDS: INSULIN REGULAR 100 UNIT/ML SUBCUT SCH ×2 (17:29→23:46)
[2018-03-15] MEDS: ALBUTEROL/IPRATROPIUM 3 ML NEB RESP TX SCH ×4 (00:36→19:03)
[2018-03-15] MEDS: AMPICILLIN/SULBACTAM 1,500 MG in SODIUM CHLORIDE 0.9% 100 ML IV SCH ×4 (04:11→22:10)
[2018-03-15] MEDS: SODIUM CHLORIDE 0.9% 1,000 ML IV SCH ×3 (04:40→20:23)
[2018-03-15 04:56] LABS: Calcium 8.2 MG/DL (8.5-10.1); Osmolality,Calculated 291.3 MOS/KG (273-304)
[2018-03-15 05:15] LABS: ABG Base Excess 0.7 MMOL/L (-2.5-2.5); ABG HCO3 25.4 MMOL/L (20-26); ABG Oxygen Saturation 99.3 % (95-100); ABG PCO2 41.2 MM HG (35-48); ABG PH 7.408 (7.35-7.45); ABG PO2 224.1 MM HG (80-95); ABG TCO2 26.7 MMOL/L (23-27); Allen Test Positive; Pt O2 Delivery Device Ventilator
[2018-03-15] MEDS: INSULIN REGULAR 100 UNIT/ML SUBCUT SCH ×4 (05:33→23:25)
[2018-03-15] MEDS: LEVOTHYROXINE 50 MCG TABLET PO SCH (05:42)
[2018-03-15] MEDS: PROPOFOL 1,000 MG/100 ML BOTTLE IV SCH ×2 (06:16→15:18)
[2018-03-15] MEDS: PANTOPRAZOLE 40 MG VIAL IV SCH (08:23)
[2018-03-15] MEDS: MEMANTINE 5 MG TABLET PO SCH ×2 (08:23→20:16)
[2018-03-15] MEDS: BENZTROPINE 2 MG TABLET PO SCH ×2 (08:23→20:17)
[2018-03-15] MEDS: VALPROIC ACID 250 MG/5 ML UDCUP PO SCH ×2 (08:23→20:17)
[2018-03-15] MEDS: ENOXAPARIN 40 MG/0.4 ML SYRINGE SUBCUT SCH (08:23)
[2018-03-16] MEDS: ALBUTEROL/IPRATROPIUM 3 ML NEB RESP TX SCH ×4 (00:28→19:28)
[2018-03-16] MEDS: PROPOFOL 1,000 MG/100 ML BOTTLE IV SCH ×2 (00:46→22:52)
[2018-03-16 04:14] LABS: ABG Base Excess 1.1 MMOL/L (-2.5-2.5); ABG HCO3 25.8 MMOL/L (20-26); ABG Oxygen Saturation 98.2 % (95-100); ABG PCO2 41.4 MM HG (35-48); ABG PH 7.412 (7.35-7.45); ABG PO2 120.6 MM HG (80-95); Allen Test Positive; Pt O2 Delivery Device Ventilator
[2018-03-16] MEDS: AMPICILLIN/SULBACTAM 1,500 MG in SODIUM CHLORIDE 0.9% 100 ML IV SCH ×4 (04:14→22:07)
[2018-03-16] MEDS: SODIUM CHLORIDE 0.9% 1,000 ML IV SCH ×3 (04:20→23:57)
[2018-03-16] MEDS: LEVOTHYROXINE 50 MCG TABLET PO SCH (05:09)
[2018-03-16 05:10] LABS: Eosinophils % 0.6 % (0.00-10.9); Hematocrit 27.1 VOL% (35.7-47.0); Hemoglobin 8.3 GM/DL (12.0-16.0); Immature Granulocytes % 0.4 %; Immature Granulocytes Absolute 0.02 #; Lymphocytes # 0.8 10*3/uL (1.4-4.0); Lymphocytes % 16.1 % (21.3-54.2); Mean Corpuscular HGB Conc 30.6 GM/DL (32-36); Mean Corpuscular Hemoglobin 23 PG (27-34); Mean Corpuscular Volume 76.3 FL (87-102); Monocytes # 0.3 10*3/uL (0.11-0.8); Monocytes % 5.8 % (1.7-12.7); Neutrophils # 3.9 10*3/uL (1.4-7.4); Neutrophils % 77.1 % (38.7-73.9); Platelet Count 329 T/CUMM (130-400); Red Blood Count 3.55 MC/CUMM (3.8-5.5); Red Cell Distribution Width 16.6 % (9.3-17.3)
[2018-03-16] MEDS: INSULIN REGULAR 100 UNIT/ML SUBCUT SCH ×4 (05:18→23:12)
[2018-03-16 05:23] LABS: Calcium 8.1 MG/DL (8.5-10.1); Potassium 3.3 MMOL/L (3.5-5.1)
[2018-03-16 05:31] LABS: Calcium 8.1 MG/DL (8.5-10.1); Osmolality,Calculated 296.9 MOS/KG (273-304); Potassium 3.3 MMOL/L (3.5-5.1); Prealbumin 4.2 MG/DL (20-40)
[2018-03-16] MEDS: POTASSIUM CHLORIDE RIDER 10 MEQ in PREMIX 1 EACH IV PRN ×4 (05:34→14:01)
[2018-03-16] MEDS: POTASSIUM CHLORIDE 20 MEQ/15 ML UDCUP PER TUBE SCH ×3 (08:41→17:23)
[2018-03-16] MEDS: VALPROIC ACID 250 MG/5 ML UDCUP PO SCH ×2 (08:42→21:04)
[2018-03-16] MEDS: PANTOPRAZOLE 40 MG VIAL IV SCH (08:42)
[2018-03-16] MEDS: MEMANTINE 5 MG TABLET PO SCH ×2 (08:42→21:04)
[2018-03-16] MEDS: ENOXAPARIN 40 MG/0.4 ML SYRINGE SUBCUT SCH (08:42)
[2018-03-16] MEDS: BENZTROPINE 2 MG TABLET PO SCH ×2 (08:43→21:04)
[2018-03-16] MEDS ORDERED: AMIODARONE INJ 450 MG in DEXTROSE 5% 241 ML IV SCH ×2 (10:40→17:00)
[2018-03-16] MEDS: HALOPERIDOL 5 MG/ML AMP IM PRN (13:58)
[2018-03-16] MEDS ORDERED: cloNIDine 0.3 MG/24 HR PATCH TRANSDERM SCH (16:30)
[2018-03-16] MEDS: MIRTAZAPINE 15 MG TABLET PO SCH (21:05)
[2018-03-16] MEDS: HALOPERIDOL 1 MG TABLET PO SCH (21:05)
[2018-03-17] MEDS: ALBUTEROL/IPRATROPIUM 3 ML NEB RESP TX SCH ×4 (01:15→18:57)
[2018-03-17 03:47] LABS: ABG Oxygen Saturation 99.4 % (95-100); ABG PCO2 46.5 MM HG (35-48); ABG PH 7.428 (7.35-7.45); ABG PO2 258.3 MM HG (80-95); ABG TCO2 31.5 MMOL/L (23-27)
[2018-03-17] MEDS: INSULIN REGULAR 100 UNIT/ML SUBCUT SCH ×4 (05:22→23:37)
[2018-03-17] MEDS: AMPICILLIN/SULBACTAM 1,500 MG in SODIUM CHLORIDE 0.9% 100 ML IV SCH ×5 (05:24→22:18)
[2018-03-17] MEDS: LEVOTHYROXINE 50 MCG TABLET PO SCH (05:24)
[2018-03-17 06:28] LABS: Calcium 8.5 MG/DL (8.5-10.1); Osmolality,Calculated 289.3 MOS/KG (273-304); Potassium 3.6 MMOL/L (3.5-5.1)
[2018-03-17 06:29] LABS: Calcium 8.4 MG/DL (8.5-10.1); Osmolality,Calculated 287.4 MOS/KG (273-304); Potassium 3.6 MMOL/L (3.5-5.1)
[2018-03-17] MEDS: HALOPERIDOL 5 MG/ML AMP IM PRN ×2 (07:37→14:16)
[2018-03-17] MEDS: HALOPERIDOL 1 MG TABLET PO SCH ×2 (09:23→20:29)
[2018-03-17] MEDS: VALPROIC ACID 250 MG/5 ML UDCUP PO SCH ×2 (09:23→20:29)
[2018-03-17] MEDS: MEMANTINE 5 MG TABLET PO SCH ×2 (09:23→20:29)
[2018-03-17] MEDS: ENOXAPARIN 40 MG/0.4 ML SYRINGE SUBCUT SCH (09:24)
[2018-03-17] MEDS: PANTOPRAZOLE 40 MG VIAL IV SCH (09:24)
[2018-03-17] MEDS: SODIUM CHLORIDE 0.9% 1,000 ML IV SCH ×3 (09:28→17:39)
[2018-03-17] MEDS ORDERED: MAGNESIUM SULF RIDER 4 GM in PREMIX 1 EACH IV ONE (10:00)
[2018-03-17] MEDS: BENZTROPINE 2 MG TABLET PO SCH ×2 (10:45→20:30)
[2018-03-17] MEDS: DORNASE ALFA 2.5 MG/2.5 ML VIAL RESP TX SCH ×2 (11:13→19:05)
[2018-03-17] MEDS: POTASSIUM CHLORIDE 20 MEQ/15 ML UDCUP PER TUBE PRN (14:50)
[2018-03-17] MEDS: MIRTAZAPINE 15 MG TABLET PO SCH (20:30)
[2018-03-18] MEDS: ALBUTEROL/IPRATROPIUM 3 ML NEB RESP TX SCH ×4 (00:41→19:32)
[2018-03-18] MEDS: HALOPERIDOL 5 MG/ML AMP IM PRN ×3 (02:46→20:01)
[2018-03-18] MEDS: SODIUM CHLORIDE 0.9% 1,000 ML IV SCH (04:04)
[2018-03-18] MEDS: AMPICILLIN/SULBACTAM 1,500 MG in SODIUM CHLORIDE 0.9% 100 ML IV SCH ×4 (04:57→23:20)
[2018-03-18] MEDS: LEVOTHYROXINE 50 MCG TABLET PO SCH (05:00)
[2018-03-18] MEDS: INSULIN REGULAR 100 UNIT/ML SUBCUT SCH ×3 (05:20→18:28)
[2018-03-18 05:51] LABS: Basophils % 0.3 % (0.0-0.8); Eosinophils % 0.8 % (0.00-10.9); Hematocrit 26.7 VOL% (35.7-47.0); Hemoglobin 8.3 GM/DL (12.0-16.0); Immature Granulocytes % 1.8 %; Immature Granulocytes Absolute 0.07 #; Lymphocytes # 0.9 10*3/uL (1.4-4.0); Lymphocytes % 24.5 % (21.3-54.2); Mean Corpuscular HGB Conc 31.1 GM/DL (32-36); Mean Corpuscular Hemoglobin 23 PG (27-34); Mean Corpuscular Volume 75.2 FL (87-102); Mean Platelet Volume 9.7 FL (9.6-12.0); Monocytes # 0.6 10*3/uL (0.11-0.8); Monocytes % 16.4 % (1.7-12.7); Neutrophils # 2.2 10*3/uL (1.4-7.4); Neutrophils % 56.2 % (38.7-73.9); Platelet Count 338 T/CUMM (130-400); Red Blood Count 3.55 MC/CUMM (3.8-5.5); Red Cell Distribution Width 16.7 % (9.3-17.3); White Blood Count 3.8 T/CUMM (4-12)
[2018-03-18 06:16] LABS: Calcium 8.3 MG/DL (8.5-10.1); Osmolality,Calculated 283.7 MOS/KG (273-304); Potassium 3.7 MMOL/L (3.5-5.1)
[2018-03-18 06:23] LABS: Eosinophils 1 % (0-10); Lymphocytes 28 % (20-55); Myelocytes 1 %; Segmented Neutrophils 55 % (50-85); Total Cells Counted 100
[2018-03-18 06:24] LABS: Hypochromasia 1+; Microcytosis 1+; Ovalocytes Slight; Target Cells Slight
[2018-03-18 06:25] LABS: Platelet Estimate Normal
[2018-03-18] MEDS: POTASSIUM CHLORIDE RIDER 10 MEQ in PREMIX 1 EACH IV PRN (06:50)
[2018-03-18] MEDS: DORNASE ALFA 2.5 MG/2.5 ML VIAL RESP TX SCH ×2 (07:12→20:16)
[2018-03-18] MEDS: PANTOPRAZOLE 40 MG VIAL IV SCH (08:00)
[2018-03-18] MEDS: POTASSIUM CHLORIDE 20 MEQ/15 ML UDCUP PER TUBE PRN (08:00)
[2018-03-18] MEDS: VALPROIC ACID 250 MG/5 ML UDCUP PO SCH ×2 (08:01→21:45)
[2018-03-18] MEDS: MEMANTINE 5 MG TABLET PO SCH ×2 (08:01→21:45)
[2018-03-18] MEDS: HALOPERIDOL 1 MG TABLET PO SCH ×2 (08:01→21:45)
[2018-03-18] MEDS: BENZTROPINE 2 MG TABLET PO SCH (08:02)
[2018-03-18] MEDS: BENZTROPINE 1 MG TABLET PO SCH (21:44)
[2018-03-18] MEDS: MIRTAZAPINE 15 MG TABLET PO SCH (21:45)
[2018-03-19] MEDS: INSULIN REGULAR 100 UNIT/ML SUBCUT SCH ×5 (00:09→23:44)
[2018-03-19] MEDS: ALBUTEROL/IPRATROPIUM 3 ML NEB RESP TX SCH ×4 (00:22→19:55)
[2018-03-19] MEDS: HALOPERIDOL 5 MG/ML AMP IM PRN ×2 (05:10→20:22)
[2018-03-19] MEDS: DEXTROSE 50% 25 GM/50 ML VIAL IV PRN ×3 (06:00→23:32)
[2018-03-19] MEDS: AMPICILLIN/SULBACTAM 1,500 MG in SODIUM CHLORIDE 0.9% 100 ML IV SCH ×3 (06:05→21:58)
[2018-03-19] MEDS: LEVOTHYROXINE 50 MCG TABLET PO SCH (06:08)
[2018-03-19 07:43] LABS: Basophils % 0.5 % (0.0-0.8); Eosinophils % 0.5 % (0.00-10.9); Hematocrit 27.4 VOL% (35.7-47.0); Hemoglobin 8.2 GM/DL (12.0-16.0); Immature Granulocytes % 1.9 %; Immature Granulocytes Absolute 0.08 #; Lymphocytes # 0.6 10*3/uL (1.4-4.0); Lymphocytes % 13.6 % (21.3-54.2); Mean Corpuscular HGB Conc 29.9 GM/DL (32-36); Mean Corpuscular Hemoglobin 23 PG (27-34); Mean Corpuscular Volume 77.8 FL (87-102); Mean Platelet Volume 9.4 FL (9.6-12.0); Monocytes # 0.9 10*3/uL (0.11-0.8); Monocytes % 21.5 % (1.7-12.7); Neutrophils # 2.6 10*3/uL (1.4-7.4); Platelet Count 342 T/CUMM (130-400); Red Blood Count 3.52 MC/CUMM (3.8-5.5); Red Cell Distribution Width 16.7 % (9.3-17.3); White Blood Count 4.1 T/CUMM (4-12)
[2018-03-19] MEDS: DORNASE ALFA 2.5 MG/2.5 ML VIAL RESP TX SCH ×2 (07:55→19:56)
[2018-03-19 08:06] LABS: Calcium 8.6 MG/DL (8.5-10.1); Potassium 3.7 MMOL/L (3.5-5.1); Prealbumin 7.9 MG/DL (20-40)
[2018-03-19] MEDS: VALPROIC ACID 250 MG/5 ML UDCUP PO SCH ×2 (08:15→21:57)
[2018-03-19] MEDS: BENZTROPINE 1 MG TABLET PO SCH ×2 (08:15→21:57)
[2018-03-19] MEDS: HALOPERIDOL 1 MG TABLET PO SCH ×2 (08:15→21:57)
[2018-03-19] MEDS: MEMANTINE 5 MG TABLET PO SCH ×2 (08:16→21:57)
[2018-03-19 08:26] LABS: Band Neutrophils 7 % (0-10); Lymphocytes 15 % (20-55); Segmented Neutrophils 56 % (50-85); Total Cells Counted 100
[2018-03-19 08:28] LABS: Hypochromasia 1+
[2018-03-19 08:29] LABS: Anisocytosis Slight; Ovalocytes Slight
[2018-03-19 08:30] LABS: Platelet Estimate Normal
[2018-03-19] MEDS ORDERED: LIDOCAINE 2% 5 ML VIAL ONE (10:00)
[2018-03-19] MEDS ORDERED: PROPOFOL 200 MG/20 ML VIAL IV ONE (10:00)
[2018-03-19] MEDS: PANTOPRAZOLE 40 MG VIAL IV SCH (11:02)
[2018-03-19] MEDS ORDERED: BENZOCAINE 20% SPRAY 57 GM CAN TOP ONE (12:17)
[2018-03-19] MEDS ORDERED: MIDAZOLAM 2 MG/2 ML VIAL ONE (12:41)
[2018-03-19] MEDS: MIRTAZAPINE 15 MG TABLET PO SCH (21:57)
[2018-03-19] MEDS: FERROUS SULFATE 325 MG TABLET PO SCH (21:57)
[2018-03-19] MEDS ORDERED: LORazepam 2 MG/1 ML VIAL IV ONE (23:06)
[2018-03-19] MEDS ORDERED: diphenhydrAMINE 50 MG/1 ML VIAL IV ONE (23:06)
[2018-03-20] MEDS: ALBUTEROL/IPRATROPIUM 3 ML NEB RESP TX SCH ×2 (00:47→08:09)
[2018-03-20] MEDS: DEXTROSE 50% 25 GM/50 ML VIAL IV PRN (01:12)
[2018-03-20] MEDS: AMPICILLIN/SULBACTAM 1,500 MG in SODIUM CHLORIDE 0.9% 100 ML IV SCH ×2 (04:02→09:02)
[2018-03-20] MEDS: INSULIN REGULAR 100 UNIT/ML SUBCUT SCH ×2 (06:21→11:10)
[2018-03-20] MEDS: LEVOTHYROXINE 50 MCG TABLET PO SCH (06:38)
[2018-03-20 07:07] LABS: Calcium 8.8 MG/DL (8.5-10.1); Osmolality,Calculated 276.4 MOS/KG (273-304); Potassium 4.1 MMOL/L (3.5-5.1)
[2018-03-20] MEDS: DORNASE ALFA 2.5 MG/2.5 ML VIAL RESP TX SCH (08:09)
[2018-03-20] MEDS: PANTOPRAZOLE 40 MG VIAL IV SCH (08:43)
[2018-03-20] MEDS: VALPROIC ACID 250 MG/5 ML UDCUP PO SCH (09:18)
[2018-03-20] MEDS: FERROUS SULFATE 325 MG TABLET PO SCH (09:19)
[2018-03-20] MEDS: BENZTROPINE 1 MG TABLET PO SCH (09:19)
[2018-03-20] MEDS: MEMANTINE 5 MG TABLET PO SCH (09:19)
[2018-03-20] MEDS: HALOPERIDOL 1 MG TABLET PO SCH (09:19)
[2018-03-20 11:47] VITALS: BP 113/70
== END 2018-03-20 14:10 | DRG 720 ==
LOC: EDUNIT# → EDBD → N.ED 20:41 → N.EDINP 03-13 01:08 → SUATTDRO 03-13 01:08 → N.ICU 03-13 11:12 → N.3E 03-18 15:41
PROVIDERS: ADMIT Internal Medicine; ATTEND Hospitalist
PROC: EGDWPEG (ICD-10-PCS; 2018-03-19 10:50)